=== PATIENT | male | born 1990 | race Caucasian/White ===

== ENCOUNTER 2022-02-25 12:47 | Emergency (ER) | payer MEDICAID ==
[~2022-02-25] VITALS: Ht 185.4 cm; Wt 98.0 kg
[2022-02-25 12:54] VITALS: BP 134/82
[2022-02-25] MEDS ORDERED: SULF1TAB48 MT (13:42)
== END 2022-02-25 14:08 | disposition home or self-care (01) ==
LOC: ER 12:47
DX: R21 Rash and other nonspecific skin eruption (principal); J45.909 Unspecified asthma, uncomplicated
CPT/HCPCS: 99281